=== PATIENT | male | born 1985 | race Two or more races ===

== ENCOUNTER 2017-01-19 17:40 | Emergency (ER) | payer OTHER ==
[~2017-01-19] VITALS: Ht 172.7 cm; Wt 124.7 kg
[2017-01-19] MEDS ORDERED: VALSARTAN 160 MG TABLET (17:57)
[2017-01-19] MEDS ORDERED: AMLODIPINE BESYLATE 10 MG TAB (17:57)
--- NOTE | 2017-01-19 18:26 | NUR ---
Patient discharged to home in stable conditon. Written and verbal after care instructions given. Patient verbalizes understanding of instructions.
== END 2017-01-19 18:27 | disposition home or self-care (01) ==
LOC: ER 17:40
DX: L73.9 Follicular disorder, unspecified (principal); I10 Essential (primary) hypertension; E11.9 Type 2 diabetes mellitus without complications; F17.200 Nicotine dependence, unspecified, uncomplicated
CPT/HCPCS: 99281; A4663